=== PATIENT | female | born 1970 ===

== ENCOUNTER 2018-01-22 09:58 | Inpatient (IN) | payer SELFPAY ==
[~2018-01-22] VITALS: Ht 165.1 cm; Wt 67.7 kg
[2018-01-22 11:19] LABS: BASOPHIL % 1.5 % (0-2); PLATELET COUNT 286 x10^3mcL (130-400)
[2018-01-22 11:26] LABS: RED CELL DISTRIBUTION WIDTH 15.1 % (11.5-14.5)
[2018-01-22 11:47] LABS: CALCIUM 8.8 mg/dL (8.5-10.1); CARBON DIOXIDE 29.8 mmol/L (21-32); CHLORIDE SERUM 111 mmol/L (98-107); CREATININE SERUM 0.8 mg/dL (0.6-1.0); GFR1 > 60 mL/min; GLUCOSE SERUM 106 mg/dL (74-106); SODIUM SERUM 147 mmol/L (136-145)
[2018-01-22 11:52] LABS: ALKALINE PHOSPHATASE 114 U/L (46-116); ALT/SGPT 22 U/L (14-59); AST/SGOT 17 U/L (15-37); BILIRUBIN TOTAL 0.28 mg/dL (0.20-1.00)
[2018-01-22 11:59] LABS: ALBUMIN 2.8 g/dL (3.4-5.0); TOTAL PROTEIN, SERUM 6.1 g/dL (6.4-8.2)
[2018-01-22 12:38] LABS: AMPHETAMINE QUAL UR NONE DETECTED (NEG <=1000)
[2018-01-22 17:00] LABS: MAGNESIUM 2.2 mg/dL (1.8-2.4)
[2018-01-22 17:03] LABS: CHOLESTEROL/HDL RATIO 2.1
[2018-01-22 17:05] LABS: T3 TOTAL 0.81 ng/mL
[2018-01-22 17:09] LABS: FREE T4 0.92 ng/dL (0.76-1.46); FREE THYROXINE INDEX 2.1 ug/dL (1.4-4.5); T4(THYROXINE) 5.8 ug/dL (4.7-13.3)
[2018-01-22 17:15] LABS: microscopic required? NO
[2018-01-22 17:20] LABS: UA SPECIFIC GRAVITY 1.015 (1.005-1.035); urine erythrocyte NEGATIVE (NEGATIVE)
[2018-01-22 20:49] VITALS: BP 148/93
[2018-01-24 12:46] VITALS: Ht 165.1 cm; Wt 67.7 kg
== END 2018-01-23 13:56 | disposition left against medical advice (07) | DRG 91 ==
LOC: ED 09:58 → DU 16:16 → MU 01-23 10:28
PROVIDERS: Emergency Medicine; Family Medicine
DX: G92 Toxic encephalopathy (principal); E43 Unspecified severe protein-calorie malnutrition; E87.0 Hyperosmolality and hypernatremia; F29 Unspecified psychosis not due to a substance or known physiological condition; R73.03 Prediabetes; E87.8 Other disorders of electrolyte and fluid balance, not elsewhere classified; D64.9 Anemia, unspecified; Z91.19 Patient's noncompliance with other medical treatment and regimen; Z68.26 Body mass index [BMI] 26.0-26.9, adult; T42.4X5A Adverse effect of benzodiazepines, initial encounter; Y92.89 Other specified places as the place of occurrence of the external cause
CPT/HCPCS: 83880; 84439; G0480; J1630; J1644; J3486; Q0092